=== PATIENT | female | born 1990 | race African-American/Black ===

== ENCOUNTER 2021-12-08 16:24 | Emergency (ER) | payer MEDICAID, SELFPAY ==
--- NOTE | ~2021-12-08 | CT_ITS ---
EXAMINATION: CT abdomen pelvis wo con EXAM DATE: 12/08/2021 20:41 INDICATION: Low abd pain, hematuria. Vaginal bleeding. TECHNIQUE: Spiral CT of the abdomen and pelvis was performed without contrast. Axial, coronal and s agittal images of the abdomen and pelvis were reviewed. The dose-length product (DLP) for this exami nation was 686.86 mGy-cm. The exposure was tailored according to patient size (auto mA exposure cont rol), and iterative reconstruction (ASIR) was used as additional dose reduction technique. There is no prior study for comparison. FINDINGS: The liver, spleen, adrenal glands and pancreas are unremarkable. Gallbladder is unremarkab le. No biliary obstruction. There is faint bilateral medullary nephrocalcinosis and punctate right superior calyceal stone. No ureteral stones or hydronephrosis. There is IUD, appears oriented correc tly within the endometrium but positioned in the lower uterine segment. The bladder is unremarkable. There is no retroperitoneal or pelvic lymphadenopathy. Small umbilical fat-containing hernia. The appendix is normal. The stomach and small bowel are unremarkable. There is expected amount of c olonic stool. No free intraperitoneal gas. The heart is normal in size. There are no pericardial or pleural effusions. The lung bases are unremarkable. There are no osteoblastic or osteolytic les ions identified. IMPRESSION: 1. IUD positioned in the lower uterine segment. 2. Medullary nephrocalcinosis. Punctate right nephrolithiasis. No hydronephrosis. 3. No acute abdominal findings. Reviewed, dictated and finalized at location . NSIC TECHNICIAN IMPRESSION: 1. IUD positioned in the lower uterine segment. 2. Medullary nephrocalcinosis. Punctate right nephrolithiasis. No hydronephros is. 3. No acute abdominal findings.
[2021-12-08 16:27] VITALS: BP 110/90; PULSE 76; RESP 18; TEMP 36.3; O2SAT 100
[2021-12-08 19:19] LABS: Basophils Percent Auto 0.6 % (0.2-1.2); Eosinophils Absolute Auto 0.1 K/mm3 (0-0.3); Hematocrit 38.8 % (37.0-47.0); Hemoglobin 12.1 g/dL (12.0-15.0); Immature Granulocyte Absolute 0.01 K/mm3 (0.00-0.031); Immature Granulocyte Percent A 0.1 % (0-0.5); Lymphocytes Absolute Auto 2.78 K/mm3 (0.9-3.2); Lymphocytes Percent Auto 38.6 % (18.3-44.2); Mean Corpuscular HGB Conc 31.2 g/dl (32-36); Mean Corpuscular Hemoglobin 27.7 pg (26-34); Mean Corpuscular Volume 88.8 fl (80-100); Mean Platelet Volume 10.8 fl (7.4-10.4); Monocytes Absolute Auto 0.5 K/mm3 (0.1-0.6); Monocytes Percent Auto 6.2 % (2.6-8.5); Neutrophils Absolute Auto 3.9 K/mm3 (1.3-6.7); Neutrophils Percent Auto 53.5 % (45.5-73.1); Platelet Count Result 249 k/mm3 (150-375); Red Blood Count 4.37 M/mm3 (4.2-5.4); Red Cell Distribution Width 15.1 % (11.5-14.5); White Blood Count 7.2 K/mm3 (4.5-10.0)
[2021-12-08 19:23] LABS: Beta HCG Quantitative < 2.39 mIU/ML
--- NOTE | 2021-12-08 19:39 | ED.FEMALEGU ---
HPI - Female Genitourinary General Chief complaint: Vaginal Bleeding <OLI Turpin Last Filed: 12/08/21 22:43> Stated complaint: abd pain, no period 3mos, vag bleed <Daisy Delatorre PA-C - Last Filed: 12/08/21 22:43> Time Seen by Provider: 12/08/21 18:53 <OLI Turpin Last Filed: 12/08/21 22:43> Source: patient <OLI Turpin Last Filed: 12/08/21 22:43> Mode of arrival: ambulatory <OLI Turpin Last Filed: 12/08/21 22:43> Limitations: no limitations <OLI Turpin Last Filed: 12/08/21 22:43> History of Present Illness HPI Narrative: This is a 31 year old female that presents to the ER for lower abdominal pain present since yesterday. Reports a sharp constant pain in the lower abdomen. Reports she had not had a period in three months so was concerned she might be . Reports today when she urinated she saw blood in the toilet. Is unsure if this was in her urine or from her vagina. Denies fever, nausea, vomiting, dysuria, or diarrhea. <Daisy Delatorre PA-C - Last Filed: 12/08/21 22:43> Related Data Allergies/Adverse reactions: Allergies Allergy/AdvReac Type Severity Reaction Status Date / Time No Known Allergies Allergy Verified 12/08/21 20:08 <Daisy Delatorre PA-C - Last Filed: 12/08/21 22:43> Review of Systems Review of Systems: CONSTITUTIONAL: Denies fever GASTROINTESTINAL: Reports abdominal pain. Denies nausea, vomiting, or diarrhea. GENITOURINARY: Denies dysuria <OLI Turpin Last Filed: 12/08/21 22:43> All systems reviewed & are unremarkable except as noted in HPI and below <OLI Turpin Last Filed: 12/08/21 22:43> [facility] Past Medical History Medical History: Medical History (Updated 12/08/21 @ 22:09 by Daisy Delatorre PA-C) No active medical problems <Daisy Delatorre PA-C - Last Filed: 12/08/21 22:43> Social History Social History: Social History (Updated 12/08/21 @ 19:42 by Daisy Delatorre PA-C) Smoking status: Current every day smoker <Daisy Delatorre PA-C - Last Filed: 12/08/21 22:43> Exam Narrative: GENERAL: Well-appearing, well-nourished, and in no acute distress. HEAD: Normocephalic, atraumatic. EYES: EOMI. CHEST: Clear to auscultation. No respiratory distress. No wheezes rales or rhonchi HEART: Regular rate and rhythm. No murmur heard. Normal peripheral pulses. ABDOMEN: Soft, nontender, nondistended, normal active bowel sounds. EXTREMITIES: Normal range of motion. No edema. SKIN: Warm, dry, no rash. NEURO: No focal deficits. Alert and oriented x3. PSYCH: Normal mood and affect PELVIC: Small amount of white/yellow discharge in the vaginal vault <Daisy Delatorre PA-C - Last Filed: 12/08/21 22:43> Course [employer]/PA Physician Supervision For this patient encounter, I reviewed the [employer] or PA documentation, treatment plan, and medical decision making <Yehuda Mehta MD - Last Filed: 12/08/21 23:31> Vital Signs Vital signs: Vital Signs Temperature 97.3 F L 12/08/21 16:27 Pulse Rate 76 12/08/21 16:27 Respiratory Rate 18 12/08/21 16:27 Blood Pressure 110/90 12/08/21 16:27 Pulse Oximetry 100 12/08/21 16:27 Temperature 97.3 F L 12/08/21 16:27 Pulse Rate 85 12/08/21 22:30 Respiratory Rate 17 12/08/21 22:30 Blood Pressure 103/65 12/08/21 22:30 Pulse Oximetry 98 12/08/21 22:30 <Daisy Delatorre PA-C - Last Filed: 12/08/21 22:43> Vital Signs Temperature 97.3 F L 12/08/21 16:27 Pulse Rate 76 12/08/21 16:27 Respiratory Rate 18 12/08/21 16:27 Blood Pressure 110/90 12/08/21 16:27 Pulse Oximetry 100 12/08/21 16:27 Temperature 97.3 F L 12/08/21 16:27 Pulse Rate 85 12/08/21 22:30 Respiratory Rate 17 12/08/21 22:30 Blood Pressure 103/65 12/08/21 22:30 Pulse Oximetry 98 12/08/21 22:30 <Yehuda Mehta MD - Last Filed: 12/08/21 23:31> MDM - Female Genitourinary
--- NOTE | 2021-12-08 19:44 | PC.NURSE ---
Report received from BLACK Medeiros. Assumed care of patient at this time. PD at bedside.
[2021-12-08 20:05] LABS: Alanine Aminotransferase 12 U/L (4-35); Albumin Level 4.4 g/dL (3.5-5.1); Alkaline Phosphatase 73 U/L (38-126); Anion Gap 11 mmol/L (8-16); Aspartate Amino Transferase 19 U/L (14-36); Bilirubin,Total 0.5 mg/dL (0.2-1.3); Blood Urea Nitrogen 9 mg/dL (7-17); Calcium 9.3 mg/dL (8.4-10.2); Carbon Dioxide 23 mmol/L (22-30); Chloride 102 mmol/L (98-107); Estimated CRCL calculation 96 ml/min; Estimated Glomerular Filt Rate > 60; Glucose 95 mg/dL (65-110); Potassium 3.7 mmol/L (3.4-5.0); Sodium 136 mmol/L (137-145)
[2021-12-08 20:10] VITALS: BP 118/65; PULSE 70; RESP 17; O2SAT 97
--- NOTE | 2021-12-08 20:13 | PC.NURSE ---
Patient aware of need for urine specimen. Patient states she is unable to provide one at this time. Patient refusing straight cath. Patient a/ox3. PD at bedside.
--- NOTE | 2021-12-08 20:40 | PC.NURSE ---
Patient in CT at this time.
[2021-12-08] MEDS: cefTRIAXone 1 GM VIAL 0.5 GM IM (21:11)
--- NOTE | 2021-12-08 21:16 | PC.NURSE ---
Patient ambulated to the bathroom with a steady gait to attempt to provide a urine specimen.
[2021-12-08 21:46] LABS: Add Urine Microscopic? YES; Appearance Urine Cloudy (Clear); Bacteria Urine Trace /hpf; Bilirubin Urine Negative (Negative); Blood Urine Negative (Negative); Color Urine Yellow (Yellow); Glucose Urine UA Negative (Negative); Ketones Urine Negative (Negative); Leukocyte Esterase Ur 2+ LEU/UL (Negative); Mucus Urine Few /lpf; Nitrate Urine Positive (Negative); Protein Urine 1+ mg/dL (Negative); Specific Grav Ur 1.028 (1.001-1.035); Squamous Epithelial Cell Urine Many /hpf (Few); Urobilinogen Urine Negative mg/dL (<2.0); WBC Urine 51-75 /hpf
[2021-12-08 22:30] VITALS: BP 103/65; PULSE 85; RESP 17; O2SAT 98
== END 2021-12-08 22:32 ==
PROVIDERS: Physician Assistant; Emergency Provider Emergency Medicine
DX: N73.0 Acute parametritis and pelvic cellulitis (principal); F17.200 Nicotine dependence, unspecified, uncomplicated; Z97.5 Presence of (intrauterine) contraceptive device; E83.59 Other disorders of calcium metabolism; N29 Other disorders of kidney and ureter in diseases classified elsewhere
CPT/HCPCS: 36415; 74176; 80053; 81001; 81025; 84702; 85025; 87070; 87077; 87086; 87088; 87186; 87491; 87591; 87808; 96372; 96374; 99284; J0131; J0696